=== PATIENT | male | born 1980 | race Caucasian/White ===

== ENCOUNTER 2021-11-29 13:37 | Emergency (ER) | payer OTHER, SELFPAY ==
--- NOTE | ~2021-11-29 | CT_ITS ---
EXAMINATION: CT HEAD WITHOUT CONTRAST CLINICAL INFORMATION: Pain COMPARISON: None TECHNIQUE: Imaging was performed from the skull base to vertex without intravenous administration of contrast. This CT examination was performed using dose optimization techniques as appropriate, variously including the following: *Automated exposure control *Adjustment of mA and/or kV according to patient size (this includes techniques or standardized protocols for targeted exams where dose is matched to indication/reason for exam; i.e. extremities or head) *Use of iterative reconstruction technique Total exam dose length product: 674 mGy-cm FINDINGS: No intra or extra-axial fluid collection, hemorrhage, or mass. No ventriculomegaly. No midline shift or herniation. Basal cisterns are patent. Drake-white matter differentiation is maintained. No territorial encephalomalacia. No significant volume loss. There is no abnormal attenuation within the brain parenchyma. No calvarial fracture or soft tissue abnormality. Minimal mucosal thickening in the ethmoid air cells. Mastoid air cells normally aerated. CT/CT head/brain wo IV con IMPRESSION: 1. No acute intracranial pathology.
--- NOTE | ~2021-11-29 | XR_ITS ---
EXAMINATION: XR THORACOLUMBAR SPINE CLINICAL INFORMATION: Pain COMPARISON: None TECHNIQUE: AP, lateral, swimmer's lateral views thoracic spine FINDINGS: Normal alignment of the thoracic spine. No subluxation. Vertebral body heights are maintained. No acute fracture or appreciable osseous lesion. Mild multilevel degenerative disc disease throughout the thoracic spine with endplate sclerosis and proliferative change. Intervertebral disc space heights are fairly well-maintained throughout. XR/XR thoracic spine 2V IMPRESSION: 1. No subluxation or fracture. 2. Mild level degenerative disc disease throughout the thoracic spine.
[2021-11-29 14:34] VITALS: BP 128/81; PULSE 73; RESP 20; TEMP 36.7; O2SAT 94; BMI 35.9
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
== END 2021-11-29 18:11 | disposition home or self-care (01) ==
PROVIDERS: Emergency Provider Emergency Medicine; PCP Nurse Practitioner Family
DX: S00.81XA Abrasion of other part of head, initial encounter (principal); R51.9 Headache, unspecified; M54.6 Pain in thoracic spine; V43.52XA Car driver injured in collision with other type car in traffic accident, initial encounter; Y93.9 Activity, unspecified; Y92.410 Unspecified street and highway as the place of occurrence of the external cause; Y99.9 Unspecified external cause status
CPT/HCPCS: 70450; 72070; 99282; 99284